=== PATIENT | female | born 1960 | race African-American/Black ===

== ENCOUNTER → 2017-08-30 | Outpatient (CLI) | payer OTHER ==
--- NOTE | 2017-08-30 10:55 | RAD ---
Cervical spine, 2 views, 08/30/2017: History: Neck pain There is straightening of the normal cervical lordosis. There is mild disc space narrowing and moderate marginal spurring at C4-5 and C5-6. There are mild degenerative changes involving scattered facet joints bilaterally. No fracture or dislocation is identified. No prevertebral soft tissue swelling is seen. IMPRESSION: 1. Mild to moderate scattered degenerative changes, most prominent at the C5-6 disc level. 2. No acute bony abnormality is detected.
== END | disposition home or self-care (01) ==
LOC: RAD 09:33
PROVIDERS: ATTEND Surgery
DX: M47.892 Other spondylosis, cervical region (principal)
CPT/HCPCS: 72040